=== PATIENT | male | born 1935 | race Caucasian/White ===

== ENCOUNTER 2018-03-04 19:39 | Emergency (ER) | payer MEDICARE ==
[2018-03-04] MEDS ORDERED: DIPHENHYDRAMINE HCL 50 MG/ML VIAL IV ONE (19:58)
--- NOTE | 2018-03-04 20:01 | ER Document Report ---
ED Medical Screen (RME) - General Chief Complaint: Headache Stated Complaint: POSSIBLE RASH Time Seen by Provider: 03/04/18 19:50 Notes: RME DISCLOSURE I have seen this patient as part of a Rapid Medical Evaluation and, if applicable, placed any initially appropriate orders. The patient will be seen and fully evaluated, including a full history and physical exam, by a provider ( in Main ED or Fast Track) when a room becomes available. 82-year-old male here with son who states he has been breaking out in a rash over the past few hours and it has been associated with chest discomfort. The rash is itchy. Patient denies shortness of breath but states on the way here he developed a headache. He does not know of anything new in his life that may have caused this reaction. NOTE Patient had systolic blood pressures 90s and 80s in PIT However patient does have Parkinson's and is unable to stop tremors during BP measurement EXAM No stridor TRAVEL OUTSIDE OF THE [place] IN LAST 30 DAYS: No - Related Data Allergies/Adverse Reactions: ibuprofen [From Motrin] Allergy (Verified 03/04/18 19:57) Past Medical History - Social History Chew tobacco use (# tins/day): No Frequency of alcohol use: Rare Drug Abuse: None Renal/ Medical History: Denies: Hx Peritoneal Dialysis Physical Exam - Vital signs Vitals: Temp Pulse Resp Pulse Ox 97.5 F 61 16 95 03/04/18 19:44 03/04/18 19:44 03/04/18 19:44 03/04/18 19:44 Course - Vital Signs Vital signs: Temp Pulse Resp BP Pulse Ox 97.5 F 61 16 133/78 H 95 03/04/18 19:44 03/04/18 19:44 03/04/18 19:44 03/04/18 19:46 03/04/18 19:44
[2018-03-04 20:28] LABS: HEMATOCRIT 40.8 % (37.9-51.0); HEMOGLOBIN 13.4 g/dL (13.5-17.0); MEAN CORPUSCULAR HEMOGLOBIN 29.5 pg (27.0-33.4); MEAN CORPUSCULAR VOLUME 90 fl (80-97); PLATELET COUNT 216 10^3/uL (150-450); RED BLOOD COUNT 4.56 10^6/uL (4.35-5.55); RED CELL DISTRIBUTION WIDTH 15.3 % (11.5-14.0); WHITE BLOOD COUNT 17.2 10^3/uL (4.0-10.5)
[2018-03-04 20:49] LABS: ABSOLUTE LYMPHOCYTES# (MANUAL) 0.7 10^3/uL (0.5-4.7); ABSOLUTE NEUTROPHILS# (MANUAL) 15.5 10^3/uL (1.7-8.2); BAND NEUTROPHILS % (MANUAL) 2 % (3-5); BASOPHILS % (MANUAL) 0 % (0-2); EOSINOPHILS % (MANUAL) 0 % (0-6); LYMPHOCYTES % (MANUAL) 4 % (13-45); MONOCYTES % (MANUAL) 6 % (3-13); SEGMENTED NEUTROPHILS % (MAN) 88 % (42-78); TOTAL CELLS COUNTED 100; TOXIC GRANULATION SLIGHT
[2018-03-04 20:50] LABS: ALANINE AMINOTRANSFERASE 60 U/L (21-72); ALBUMIN 3.9 g/dL (3.5-5.0); ALKALINE PHOSPHATASE 152 U/L (38-126); ANION GAP 12 (5-19); ANISOCYTOSIS SLIGHT; ASPARTATE AMINO TRANSFERASE 259 U/L (17-59); BILIRUBIN,DIRECT 0.4 mg/dL (0.0-0.4); BILIRUBIN,TOTAL 0.4 mg/dL (0.2-1.3); BLOOD UREA NITROGEN 43 mg/dL (7-20); CARBON DIOXIDE 23 mmol/L (22-30); CHLORIDE 106 mmol/L (98-107); GLUCOSE 152 mg/dL (75-110); PLATELET COMMENT ADEQUATE; POTASSIUM 3.9 mmol/L (3.6-5.0); SODIUM 140.6 mmol/L (137-145); TOTAL PROTEIN 6.3 g/dL (6.3-8.2)
--- NOTE | 2018-03-04 21:02 | RADIOLOGY REPORT (SQ) ---
EXAM DESCRIPTION: CT HEAD WITHOUT COMPLETED DATE/TIME: 03/04/2018 8:47 pm REASON FOR STUDY: headache COMPARISON: None. TECHNIQUE: Axial images acquired through the brain without intravenous contrast. Images reviewed wi th bone, brain and subdural windows. Images stored on PACS. All CT scanners at this facility use dose modulation, iterative reconstruction, and/or weight based d osing when appropriate to reduce radiation dose to as low as reasonably achievable (ALARA). [facility]: Dose Right [facility]: CareDose [facility]: Dose Right [facility]: Teradose 4D [facility]: Smart Logic Nation RADIATION DOSE: CT Rad equipment meets quality standard of care and radiation dose reduction techniq ues were employed. CTDIvol: 53.2 mGy. DLP: 1017 mGy-cm. mGy. LIMITATIONS: None. FINDINGS: VENTRICLES: Prominent. CEREBRUM: No masses. No hemorrhage. No midline shift. Areas of low density in the white matter mos t likely due to chronic micro-vascular ischemic change. No evidence for acute infarction. CEREBELLUM: No masses. No hemorrhage. No alteration of density. No evidence for acute infarction. EXTRAAXIAL SPACES: Mild age-related involutional change. No fluid collections. No masses. ORBITS AND GLOBE: No intra- or extraconal masses. Normal contour of globe without masses. CALVARIUM: No fracture. PARANASAL SINUSES: No fluid or mucosal thickening. SOFT TISSUES: No mass or hematoma. 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 IMPRESSION: No acute intracranial findings. EVIDENCE OF ACUTE STROKE: No TECHNICAL DOCUMENTATION: JOB ID: [id number] [place]-72 Quality ID # [id number]: Final reports with documentation of one or more dose reduction techniques (e.g., Au tomated exposure control, adjustment of the mA and/or kV according to patient size, use of iterative reconstruction technique) 2010 [employer]- All Rights Reserved Reading location - IP/workstation name: [employer]
--- NOTE | 2018-03-04 21:22 | RADIOLOGY REPORT (SQ) ---
EXAM DESCRIPTION: CHEST 2 VIEWS COMPLETED DATE/TIME: 03/04/2018 8:43 pm REASON FOR STUDY: CP COMPARISON: None. EXAM PARAMETERS: NUMBER OF VIEWS: two views TECHNIQUE: Digital Frontal and Lateral radiographic views of the chest acquired. RADIATION DOSE: NA LIMITATIONS: none FINDINGS: LUNGS AND PLEURA: No consolidation, masses or pneumothorax. No pleural effusion. MEDIASTINUM AND HILAR STRUCTURES: Age-appropriate. HEART AND VASCULAR STRUCTURES: Heart normal size. No evidence for failure. BONES: No acute findings. HARDWARE: None in the chest. OTHER: No other significant finding. IMPRESSION: NO ACUTE RADIOGRAPHIC FINDING IN THE CHEST. TECHNICAL DOCUMENTATION: JOB ID: [id number] [place]-72 2010 [employer]- All Rights Reserved Reading location - IP/workstation name: [email or web address]
--- NOTE | 2018-03-04 21:41 | ER Document Report ---
ED General - General Chief Complaint: Headache Stated Complaint: POSSIBLE RASH Time Seen by Provider: 03/04/18 19:50 Notes: Patient is an 82-year-old male with medical history as recorded who presents with acute onset of urticaria with associated itching. The patient states that the symptoms started approximately 2 hours prior to arrival and have been worsening since that time. The patient was initially uncertain of what would have triggered these hives but after conferencing with the family and the patient is revealed that he took [place] upon getting home from eating out at [facility] due to having concerns of indigestion. Patient however is allergic to all NSAIDs including aspirin and was apparently unaware that [place] contains an aspirin product. The patient denies any history of similar reactions in the recent past. He denies any associated shortness of breath, chest pain, vomiting or diarrhea. The patient apparently did develop a mild, throbbing, global headache in route to the hospital but denies that at the time of my assessment. He also denies any ongoing chest discomfort and is clear to state that his symptoms earlier today were his typical indigestion and not a chest pain that concerned him. TRAVEL OUTSIDE OF THE [place] IN LAST 30 DAYS: No - Related Data Allergies/Adverse Reactions: ibuprofen [From Motrin] Allergy (Verified 03/04/18 19:57) Past Medical History - General Information source: Patient - Social History Smoking Status: Former Smoker Chew tobacco use (# tins/day): No Frequency of alcohol use: Rare Drug Abuse: None Lives with: Family Family History: Reviewed & Not Pertinent Patient has suicidal ideation: No Patient has homicidal ideation: No - Past Medical History Cardiac Medical History: Reports: Hx Atrial Fibrillation Renal/ Medical History: Denies: Hx Peritoneal Dialysis Past Surgical History: Reports: Hx Bowel Surgery, Hx Neurologic Surgery - aneurysm clipped, Hx Orthopedic Surgery - R ankle Review of Systems - Review of Systems Notes: Constitutional: Negative for fever. HENT: Negative for sore throat. Eyes: Negative for visual changes. Cardiovascular: Negative for chest pain. Respiratory: Negative for shortness of breath. Gastrointestinal: Negative for abdominal pain, vomiting or diarrhea. Genitourinary: Negative for dysuria. Musculoskeletal: Negative for back pain. Skin: Positive for urticaria Neurological: Positive for headache 10 point ROS negative except as marked above and in HPI. Physical Exam - Vital signs Vitals: Temp Pulse Resp Pulse Ox 97.5 F 61 16 95 03/04/18 19:44 03/04/18 19:44 03/04/18 19:44 03/04/18 19:44 Interpretation: Normal Notes: PHYSICAL EXAMINATION: GENERAL: Well-appearing, well-nourished and in no acute distress. HEAD: Atraumatic, normocephalic. EYES: Pupils equal round and reactive to light, extraocular movements intact, sclera anicteric, conjunctiva are normal. ENT: nares patent, oropharynx clear without exudates. Moderately dry mucous membranes. NECK: Normal range of motion, supple without lymphadenopathy LUNGS: Breath sounds clear to auscultation bilaterally and equal. No wheezes rales or rhonchi. HEART: Regular rate and rhythm without murmurs ABDOMEN: Soft, nontender, normoactive bowel sounds. No guarding, no rebound. No masses appreciated. EXTREMITIES: Normal range of motion, no pitting or edema. No cyanosis. NEUROLOGICAL: No focal neurological deficits. Moves all extremities spontaneously and on command. PSYCH: Normal mood, normal affect. SKIN: Warm, Dry, normal turgor, multiple scattered areas of faded urticaria over the low back, bilateral forearms Course - Re-evaluation Re-evalutation: 03/04/18 21:37 Patient presents with symptoms consistent with an allergic reaction without anaphylaxis. Only cutaneous involvement with multiple areas of hives. Vitals otherwise within normal limits at time of arrival. No respiratory, GI, cardiovascular, or oral pharyngeal symptoms. Patient was given Benadryl 50 mg IV prior to my assessment of the patient. This has resolved his irritation and the family notes most of his urticaria have likewise resolved. Will recommend ongoing nonsedating antihistamine therapy as an outpatient. There is a clear trigger for today's episode as the patient took [place] prior to arrival but has a known allergy to all NSAIDs. Apparently he was not aware that [place] does contain aspirin products. Labs were ordered in triage for uncertain reasons. These are noted to be unremarkable with the exception of a renal dysfunction. The family notes that he has a history of renal dysfunction but are uncertain of his baseline laboratories. I provided him with a copy of his laboratories today and asked that he follow-up with his primary care doctor within the next 48 hours to ensure that these labs are not from his baseline as I have no old for comparison. A CT the head was also obtained in triage again I am uncertain as to the reason why. Family does note that the patient had complained a mild headache with his urticaria. This is noted again to be unremarkable. At this time will discharge with return precautions and follow- up recommendations. Verbal discharge instructions given a the bedside and opportunity for questions given. Medication warnings reviewed. Patient is in agreement with this plan and has verbalized understanding of return precautions and the need for primary care follow-up in the next 24-72 hours. - Vital Signs Vital signs: Temp Pulse Resp BP Pulse Ox 97.5 F 61 16 133/58 H 96 03/04/18 19:44 03/04/18 19:44 03/04/18 21:53 03/04/18 21:53 03/04/18 21:53 - Laboratory Result Diagrams: 03/04/18 20:10 03/04/18 20:10 Laboratory results interpreted by me: 03/04/18 03/04/18 20:10 20:10 WBC 17.2 H Hgb 13.4 L RDW 15.3 H Seg Neuts % (Manual) 88 H Band Neutrophils % 2 L Lymphocytes % (Manual) 4 L Abs Neuts (Manual) 15.5 H BUN 43 H Creatinine 2.36 H Est GFR ( Amer) 32 L Est GFR (Non-Af Amer) 27 L Glucose 152 H AST 259 H Alkaline Phosphatase 152 H - Diagnostic Test Radiology reviewed: Image reviewed, Reports reviewed Radiology results interpreted by me: 03/04/18 21:39 Chest x-ray: No acute infiltrate or pneumothorax CT head: No acute intracranial bleed Discharge - Discharge Clinical Impression: Urticaria, Kidney dysfunction Allergic reaction caused by a drug Qualifiers: Encounter type: initial encounter Qualified Code(s): T78.40XA - Allergy, unspecified, initial encounter Condition: Good Disposition: HOME, SELF-CARE Additional Instructions: You were seen today for hives. This can be either allergic, autoimmune, or environmental in origin. You took an aspirin product today which is likely the source of your allergic reaction. You can continue to take cetirizine 10mg up to 3 times daily as needed for itching. IF YOU DEVELOP DIFFICULTY BREATHING, SPREADING OF HIVES, VOMITING, LIGHTHEADEDNESS, IMMEDIATELY AND CALL 911. Please follow-up with your primary care physician in the next 1-2 days for recheck of your kidney functions which were noted to be abnormal today.
[2018-03-04 22:07] VITALS: BP 133/58
== END 2018-03-04 22:07 | disposition home or self-care (01) ==
LOC: ER 19:39
DX: L50.9 Urticaria, unspecified (principal); N28.9 Disorder of kidney and ureter, unspecified; T78.40XA Allergy, unspecified, initial encounter; R51 Headache; X58.XXXA Exposure to other specified factors, initial encounter; R21 Rash and other nonspecific skin eruption; I48.91 Unspecified atrial fibrillation; Z88.6 Allergy status to analgesic agent
CPT/HCPCS: 99284; 96374; 36415; 85025; 80053; 84484; 71046; 70450; J1200

== ENCOUNTER 2018-12-17 15:06 | Emergency (ER) | payer MEDICARE, OTHER ==
--- NOTE | 2018-12-17 16:30 | ER Document Report ---
ED General - General Chief Complaint: Fall Stated Complaint: SIDE PAIN Time Seen by Provider: 12/17/18 15:46 Notes: Patient is a 82-year-old male that presents to the emergency department for chief complaint of right upper quadrant abdominal pain. Patient states that he fell about 2 weeks ago, but before that he was starting to have pain in his right upper abdomen, it comes and goes, seems to be worse with different positions particularly with stretching and bending which has been doing physical therapy, he did injure his right lower back 2 weeks ago, that has been healing. He denies any other complaints at this time, he currently rates the pain as a 0 out of 10, as he mentioned it comes and goes, but when it does get worse as a 4 out of 10 he describes as a constant aching sensation when it does come on. Has not associated with food, or eating, he denies having any associated dysuria, hematuria or urinary frequency, he does have a history of overactive bladder, but that has not changed or been worse recently. Past Medical History: Overactive bladder, BPH, atrial fibrillation on Coumadin Past Surgical History: Hernia repairs Social History: Denies tobacco, alcohol or drug use Family History: Reviewed and noncontributory for presenting illness Allergies: Reviewed, see documented allergy list. REVIEW OF SYSTEMS: Other than noted above, the 12 point review of systems was reviewed with the patient and were negative, all pertinent findings are included in the HPI. PHYSICAL EXAMINATION: Vital signs reviewed, nursing noted reviewed. GENERAL: Elderly male, well-appearing, well-nourished and in no acute distress. HEAD: Atraumatic, normocephalic. EYES: Eyes appear normal, extraocular movements intact, sclera anicteric, conjunctiva are normal. ENT: nares patent, oropharynx clear without exudates. Moist mucous membranes. NECK: Normal range of motion, supple without lymphadenopathy LUNGS: Breath sounds clear to auscultation bilaterally and equal. No wheezes rales or rhonchi. HEART: Regular rate and rhythm without murmurs ABDOMEN: Soft, mild right upper quadrant abdominal tenderness to palpation, normoactive bowel sounds. No rebound, guarding, or rigidity. No masses appreciated. Back: Mild ecchymosis noted that seems to be in healing stage, in the right low back, no midline tenderness. No step-offs or deformities. EXTREMITIES: Nontender, good range of motion, no pitting or edema. NEUROLOGICAL: No focal neurological deficits. Moves all extremities spontaneously Motor and sensory grossly intact on exam. PSYCH: Normal mood, normal affect. SKIN: Warm, Dry, normal turgor, no rashes or lesions noted on exposed skin TRAVEL OUTSIDE OF THE [place] IN LAST 30 DAYS: No - Related Data Allergies/Adverse Reactions: ibuprofen [From Motrin] Allergy (Verified 12/17/18 15:07) Past Medical History - Social History Smoking Status: Never Smoker Chew tobacco use (# tins/day): No Frequency of alcohol use: Rare Drug Abuse: None Family History: Reviewed & Not Pertinent Patient has suicidal ideation: No Patient has homicidal ideation: No - Past Medical History Cardiac Medical History: Reports: Hx Atrial Fibrillation, Hx Hypertension Renal/ Medical History: Denies: Hx Peritoneal Dialysis Past Surgical History: Reports: Hx Bowel Surgery - hernia surgery, Hx Cardiac Surgery - stent, Hx Neurologic Surgery - aneurysm clipped, Hx Orthopedic Surgery - R ankle Physical Exam - Vital signs Vitals: Temp Pulse Resp BP Pulse Ox 97.6 F 54 L 16 132/60 H 97 12/17/18 15:12 12/17/18 15:12 12/17/18 15:12 12/17/18 15:12 12/17/18 15:12 Course - Re-evaluation Re-evalutation: Patient seen and examined vital signs reviewed. Laboratory data and imaging were ordered as appropriate for the patient's presenting symptoms and complaint, with consideration of any critical or life threatening conditions that may be associated with their obtained history and exam as noted above. Patient declined any need for pain medication at this time Results were reviewed when available and demonstrated renal function at baseline, otherwise unremarkable blood work, normal LFTs, ultrasound of the gallbladder demonstrated cholelithiasis without evidence of cholecystitis The patient was re-evaluated and was stable Evaluation was most consistent with cholelithiasis, right upper quadrant abdominal pain, nonspecific, could be related to gallstones, but no evidence of acute cholecystitis at this time, will refer to surgery, and have him follow-up with his primary care physician. Results were discussed with the patient at this point, after careful consideration I feel that that patient can be discharged from the emergency department, the patient was educated treatments and reasons to return to the emergency department based on their presumed diagnosis as noted above, they were advised to followup with a primary care physician in 2-3 days. Patient was agreeable to plan of care. *Note is created using voice recognition software and may contain spelling, syntax or grammatical errors. Laboratory 12/17/18 12/17/18 16:32 16:32 WBC 7.2 RBC 3.92 L Hgb 12.5 L Hct 36.9 L MCV 94 MCH 31.8 MCHC 33.8 RDW 14.4 H Plt Count 203 Seg Neutrophils % 77.5 Lymphocytes % 12.7 L Monocytes % 7.2 Eosinophils % 2.2 Basophils % 0.4 Absolute Neutrophils 5.5 Absolute Lymphocytes 0.9 Absolute Monocytes 0.5 Absolute Eosinophils 0.2 Absolute Basophils 0.0 Sodium 141.3 Potassium 4.7 Chloride 108 H Carbon Dioxide 26 Anion Gap 7 BUN 40 H Creatinine 2.53 H Est GFR ( Amer) 30 L Est GFR (Non-Af Amer) 25 L Glucose 99 Calcium 8.8 Total Bilirubin 0.6 Direct Bilirubin 0.4 Neonat Total Bilirubin Not Reportable Neonat Direct Bilirubin Not Reportable Neonat Indirect Bili Not Reportable AST 26 ALT 6 L Alkaline Phosphatase 61 Total Protein 6.2 L Albumin 4.0 Lipase 244.4 Abdomen Ultrasound 12/17/18 16:28 IMPRESSION: Cholelithiasis without evidence of cholecystitis. - Vital Signs Vital signs: Temp Pulse Resp BP Pulse Ox 97.6 F 54 L 16 132/60 H 97 12/17/18 15:12 12/17/18 15:12 12/17/18 15:12 12/17/18 15:12 12/17/18 15:12 - Laboratory Result Diagrams: 12/17/18 16:32 12/17/18 16:32 Laboratory results interpreted by me: 12/17/18 12/17/18 12/17/18 16:32 16:32 17:40 RBC 3.92 L Hgb 12.5 L Hct 36.9 L RDW 14.4 H Lymphocytes % 12.7 L Chloride 108 H BUN 40 H Creatinine 2.53 H Est GFR ( Amer) 30 L Est GFR (Non-Af Amer) 25 L ALT 6 L Total Protein 6.2 L Urine Protein >=500 H Discharge - Discharge Clinical Impression: Cholelithiasis Qualifiers: Cholelithiasis location: gallbladder Cholecystitis presence: without cholecystitis Biliary obstruction: without biliary obstruction Qualified Co de(s): K80.20 - Calculus of gallbladder without cholecystitis without obstruction Abdominal pain Qualifiers: Abdominal location: right upper quadrant Qualified Code(s): R10.11 - Right upper quadrant pain Condition: Stable Disposition: HOME, SELF-CARE Instructions: Abdominal Pain ([facility]), Gallbladder Disease ([facility]) Additional Instructions: Please return to the emergency department if you have any worsening, or concern of your symptoms. Please return to the emergency department if you develop chest pain, difficulty breathing, severe abdominal pain, or ongoing vomiting. Please follow-up with your primary care physician in 2-3 days and any other recommended physicians. If prescribed, take all medications as directed. If you have any questions or concerns do not hesitate to return the emergency department for evaluation. Referrals: MEY ZIMMER MD [COMMUNITY BASED STAFF] - Follow up in 3-5 days (or your primary care. )
[2018-12-17 17:02] LABS: ABSOLUTE EOSINOPHILS # (AUTO) 0.2 10^3/uL (0.0-0.6); ABSOLUTE LYMPHOCYTES (AUTO) 0.9 10^3/uL (0.5-4.7); ABSOLUTE MONOCYTES (AUTO) 0.5 10^3/uL (0.1-1.4); ABSOLUTE NEUT (AUTO) 5.5 10^3/uL (1.7-8.2); BASOPHILS % (AUTO) 0.4 % (0-2); EOSINOPHILS % (AUTO) 2.2 % (0-6); HEMATOCRIT 36.9 % (37.9-51.0); HEMOGLOBIN 12.5 g/dL (13.5-17.0); LYMPHOCYTES % (AUTO) 12.7 % (13-45); MEAN CORPUSCULAR HEMOGLOBIN 31.8 pg (27.0-33.4); MEAN CORPUSCULAR HGB CONC 33.8 g/dL (32.0-36.0); MEAN CORPUSCULAR VOLUME 94 fl (80-97); MONOCYTES % (AUTO) 7.2 % (3-13); PLATELET COUNT 203 10^3/uL (150-450); RED BLOOD COUNT 3.92 10^6/uL (4.35-5.55); RED CELL DISTRIBUTION WIDTH 14.4 % (11.5-14.0); SEGMENTED NEUTROPHILS % (AUTO) 77.5 % (42-78); TOTAL CELLS COUNTED % (AUTO) 100 %; WHITE BLOOD COUNT 7.2 10^3/uL (4.0-10.5)
[2018-12-17 17:21] LABS: ALANINE AMINOTRANSFERASE 6 U/L (21-72); ALKALINE PHOSPHATASE 61 U/L (38-126); ANION GAP 7 (5-19); ASPARTATE AMINO TRANSFERASE 26 U/L (17-59); BILIRUBIN,DIRECT 0.4 mg/dL (0.0-0.4); BILIRUBIN,TOTAL 0.6 mg/dL (0.2-1.3); BLOOD UREA NITROGEN 40 mg/dL (7-20); CALCIUM 8.8 mg/dL (8.4-10.2); CARBON DIOXIDE 26 mmol/L (22-30); CHLORIDE 108 mmol/L (98-107); GLUCOSE 99 mg/dL (75-110); LIPASE 244.4 U/L (23-300); POTASSIUM 4.7 mmol/L (3.6-5.0); SODIUM 141.3 mmol/L (137-145); TOTAL PROTEIN 6.2 g/dL (6.3-8.2)
--- NOTE | 2018-12-17 17:49 | RADIOLOGY REPORT (SQ) ---
EXAM DESCRIPTION: U/S ABDOMEN LIMITED W/O DOP COMPLETED DATE/TIME: 12/17/2018 5:29 pm REASON FOR STUDY: ruq abdominal pain COMPARISON: None. TECHNIQUE: Dynamic and static grayscale images acquired of the abdomen and recorded on PACS. Additio nal selected color Doppler and spectral images recorded. LIMITATIONS: Intervening bowel gas limits evaluation of the pancreas and proximal aorta FINDINGS: PANCREAS: Not visualized. LIVER: No masses. Echotexture normal. LIVER VASCULATURE: Normal directional flow of the main portal vein and hepatic veins. GALLBLADDER: Gallstone(s). No pericholecystic fluid. No wall thickening. ULTRASOUND-DETECTED OSORIO'S SIGN: Negative. INTRAHEPATIC DUCTS AND COMMON DUCT: CBD and intrahepatic ducts normal caliber. No filling defects. INFERIOR VENA CAVA: Normal flow. AORTA: No aneurysm. RIGHT KIDNEY: Normal size. Normal echogenicity. No solid or suspicious masses. No hydronephrosis. No calcifications. PERITONEAL AND RIGHT PLEURAL SPACE: No ascites or effusions. OTHER: No other significant findings. IMPRESSION: Cholelithiasis without evidence of cholecystitis. TECHNICAL DOCUMENTATION: JOB ID: [id number] [employer]- All Rights Reserved Reading location - IP/workstation name: [email or web address]
[2018-12-17 18:12] LABS: APPEARANCE,URINE CLEAR; BILIRUBIN,URINE NEGATIVE (NEGATIVE); COLOR,URINE YELLOW; GLUCOSE, URINE NEGATIVE (NEGATIVE); KETONES,URINE NEGATIVE (NEGATIVE); LEUKOCYTE ESTERASE,URINE NEGATIVE (NEGATIVE); NITRITE,URINE NEGATIVE (NEGATIVE); PROTEIN,URINE >=500 mg/dL (NEGATIVE); UROBILINOGEN,URINE NEGATIVE mg/dL (<2.0)
[2018-12-17 18:44] VITALS: BP 152/87
== END 2018-12-17 18:44 | disposition home or self-care (01) ==
LOC: ER 15:06
DX: K80.20 Calculus of gallbladder without cholecystitis without obstruction (principal); S30.0XXD Contusion of lower back and pelvis, subsequent encounter; W01.198D Fall on same level from slipping, tripping and stumbling with subsequent striking against other object, subsequent encounter; I10 Essential (primary) hypertension; Z95.5 Presence of coronary angioplasty implant and graft; Z88.6 Allergy status to analgesic agent
CPT/HCPCS: 36415; 76705; 80053; 81001; 83690; 85025; 99284

== ENCOUNTER 2020-08-05 07:29 | Emergency (ER) | payer MEDICARE, BC ==
--- NOTE | 2020-08-05 08:13 | RADIOLOGY REPORT (SQ) ---
EXAM DESCRIPTION: KNEE LEFT 4 VIEW IMAGES COMPLETED DATE/TIME: 08/05/2020 7:49 am REASON FOR STUDY: swelling and pain with ambulating COMPARISON: None. NUMBER OF VIEWS: Four views left knee LIMITATIONS: None. FINDINGS: Osteopenic without fracture. Mild medial compartment narrowing and spurring. Mild patell ar degenerative spurring as well. Small effusion. Regional vascular calcification. OTHER: No other significant finding. IMPRESSION: Small effusion. Osteopenic without fracture suggested. STEPHANIE. TECHNICAL DOCUMENTATION: JOB ID: [id number] Reading location - IP/workstation name: [email or web address]
[2020-08-05] MEDS ORDERED: ACETAMINOPHEN 325 MG TABLET PO ONE (08:39)
[2020-08-05] MEDS ORDERED: PREDNISONE 20 MG TABLET PO ONE (08:39)
--- NOTE | 2020-08-05 08:49 | ER Document Report ---
Entered by YANELI VINCENT SCRIBE 08/05/20 0828 Acting as scribe for:CRIS KEY MD ED Extremity Problem, Lower - General Chief Complaint: Knee Pain Stated Complaint: LEFT KNEE PAIN Time Seen by Provider: 08/05/20 08:17 Primary Care Provider: CHRIS GUTHRIE MD [Primary Care Provider] - Follow up as needed Mode of Arrival: Wheelchair Information source: Patient, Relative - Son Notes: This 84 year old male patient presents to the ED today for evaluation of left knee pain and swelling that woke him up around 0300 this morning. Patient states that his knee was fine when he went to bed last night. No recent injury or trauma. He states that he has arthritis, but never in that knee. Son at bedside states that the patient took x2 500 mg Tylenol with mild relief around 0300 this morning. Denies any other complaints. Denies history of gout. TRAVEL OUTSIDE OF THE [place] IN LAST 30 DAYS: No - Related Data Allergies/Adverse Reactions: ibuprofen [From Motrin] Allergy (Verified 08/05/20 07:58) Past Medical History - General Information source: Patient, [facility] Records - Social History Smoking Status: Former Smoker Chew tobacco use (# tins/day): No Smoking Education Provided: No Frequency of alcohol use: None Drug Abuse: None Lives with: Family Family History: Reviewed & Not Pertinent Patient has suicidal ideation: No Patient has homicidal ideation: No - Past Medical History Cardiac Medical History: Reports: Hx Atrial Fibrillation, Hx Hypercholesterolemia, Hx Hypertension Pulmonary Medical History: Reports: Hx COPD Psychiatric Medical History: Reports: Hx Depression Past Surgical History: Reports: Hx Cardiac Surgery - stent, Hx Coronary Stent, Hx Herniorrhaphy, Hx Neurologic Surgery - aneurysm clipped, Hx Orthopedic Surgery - R ankle Review of Systems - Review of Systems Constitutional: No symptoms reported EENT: No symptoms reported Cardiovascular: No symptoms reported Respiratory: No symptoms reported Gastrointestinal: No symptoms reported Genitourinary: No symptoms reported Male Genitourinary: No symptoms reported Musculoskeletal: See HPI, Joint pain, Joint swelling Skin: No symptoms reported Hematologic/Lymphatic: No symptoms reported Neurological/Psychological: No symptoms reported -: Yes All other systems reviewed and negative Physical Exam - Vital signs Vitals: Temp Pulse Resp BP Pulse Ox 98.2 F 53 L 18 145/75 H 97 08/05/20 07:39 08/05/20 07:39 08/05/20 07:39 08/05/20 07:39 08/05/20 07:39 - General General appearance: Appears well, Alert In distress: None - HEENT Head: Normocephalic, Atraumatic Eyes: Normal Pupils: PERRL - Respiratory Respiratory status: No respiratory distress Chest status: Nontender Breath sounds: Normal Chest palpation: Normal - Cardiovascular Rhythm: Regular Heart sounds: Normal auscultation, S1 appreciated, S2 appreciated Murmur: No Friction rub: No Gallop: None auscultated - Abdominal Inspection: Normal Distension: No distension Bowel sounds: Normal Tenderness: Nontender - Abdomen soft Organomegaly: No organomegaly - Back Back: Normal, Nontender - Extremities General upper extremity: Normal inspection Knee: Joint effusion - Ballotable fluid, left knee, Other - Mildly warm to the touch. No: Deformity - or crepitus - Neurological Neuro grossly intact: Yes Orientation: AAOx4 [place] Coma Scale Eye Opening: Spontaneous [place] Coma Scale Verbal: Oriented [place] Coma Scale Motor: Obeys Commands Sergei Coma Scale Total: 15 - Psychological Associated symptoms: Normal affect, Normal mood - Skin Skin Temperature: Warm Skin Moisture: Dry Skin Color: Normal Course - Re-evaluation Re-evalutation: 08/05/20 10:47 Patient reports his left knee pain is improved and less painful after treatment with medications in the ED. Patient was given Tylenol and prednisone tablet. 08/05/20 10:48 Patient has has a knee immobilizer and Dedrick wrap in place on the left knee and is able to ambulate successfully. Patient does have a cane at home as well as a walker and according to her son most likely he will be able to ambulate at home without any problems. - Vital Signs Vital signs: Temp Pulse Resp BP Pulse Ox 98.2 F 53 L 18 145/75 H 97 08/05/20 07:39 08/05/20 07:39 08/05/20 07:39 08/05/20 07:39 08/05/20 07:39 08/05/20 10:47 Vital signs are stable - Diagnostic Test Radiology reviewed: Image reviewed, Reports reviewed Radiology results interpreted by me: 08/05/20 10:49 Left knee shows degenerative joint disease and a small amount of joint fluid. No fracture no dislocation. Discharge - Discharge Clinical Impression: Osteoarthritis of left knee Condition: Stable Disposition: HOME, SELF-CARE Instructions: Ice & Elevation ([facility]), Knee Immobilizing Splint ([facility]) Additional Instructions: Osteoarthritis Your symptoms are due to osteoarthritis. Osteoarthritis is inflammation caused by "wear and tear" of the joints. There is no cure for osteoarthritis, but medicine can help the pain and stiffness. It's important to keep the joints moving. Move the joints through their full range daily. Light exercise helps, but if exercise hurts, switch to a non-impact exercise like swimming. Local warmth may help ease pain. Call or return if any joint becomes severely swollen or increasingly painful, or if you have fever or spreading redness. Prescriptions: Prednisone [Deltasone 20 mg Tablet] 20 mg PO DAILY #6 tablet Referrals: CHRIS GUTHRIE MD [Primary Care Provider] - Follow up as needed I personally performed the services described in the documentation, reviewed and edited the documentation which was dictated to the scribe in my presence, and it accurately records my words and actions.
[2020-08-05 11:06] VITALS: BP 142/74
== END 2020-08-05 11:00 | disposition home or self-care (01) ==
LOC: ER 07:29
DX: M17.12 Unilateral primary osteoarthritis, left knee (principal); M25.562 Pain in left knee; I48.91 Unspecified atrial fibrillation; E78.00 Pure hypercholesterolemia, unspecified; I10 Essential (primary) hypertension; J44.9 Chronic obstructive pulmonary disease, unspecified; Z88.6 Allergy status to analgesic agent
CPT/HCPCS: 99284; 36415; 84550; 73564; A9270 ×2; J7512